=== PATIENT | female | born 1975 | race Hispanic/Latino ===

== ENCOUNTER 2019-08-22 21:54 | Emergency (ER) | payer OTHER ==
[~2019-08-22 21:54] MED LIST: ISOVUE-370 76%-LOCM 1 ML ONE
[2019-08-22] MEDS ORDERED: HYDROcodone/Acetaminophen 5/325 mg Tablet ONE (22:33)
--- NOTE | 2019-08-22 22:58 | RAD ---
XR Lumbar Spine 2 Or 3 View History: Pain Comparison: None. Findings: No acute fracture or malalignment. 5 nonrib-bearing lumbar type vertebra. No listhesis. No pars interarticularis defects. Right upper quadrant surgical clips. SI joints are unremarkable. Impression: Normal examination of the lumbar spine.
[2019-08-22] MEDS ORDERED: Ketorolac Tromethamine 30 MG/ML VIAL ONE (23:59)
[2019-08-23] LABS: #Basophils 0.1 thou/uL (0.0-0.2); #Eosinphils 0.2 thou/uL (0.0-0.7); #Lymphocytes 2.5 thou/uL (1.20-3.40); #Monocytes 0.6 thou/uL (0.11-0.59); #Neutrophils 5.8 thou/uL (1.40-6.50); %Basophils 0.6 % (0.0-1.0); %Eosinophils 2.2 % (0.0-10.0); %Lymphocytes 27.7 % (21.0-51.0); %Monocytes 6.3 % (0.0-10.0); %Neutrophils 63.2 % (42.0-75.0); Hemoglobin 12.3 g/dL (12.0-16.0); Mean Corpuscular Hemoglobin 26.8 pg (27.0-31.0); Mean Corpuscular Volume 81.3 fL (78.0-98.0); Mean Platelet Volume 9.2 fL (7.4-10.4); Platelet Count 198 thou/uL (130-400); RBC Distribution Width 13.7 % (11.5-14.5); Red Blood Cell (RBC) Count 4.59 mill/uL (4.20-5.40); White Blood Cell (WBC) Count 9.1 thou/uL (4.8-10.8)
[2019-08-23 00:21] LABS: ALT (SGPT) 17 U/L (8-55); AST (SGOT) 14 U/L (5-34); Albumin 3.9 g/dL (3.5-5.0); Alkaline Phosphatase 77 U/L (40-110); Anion Gap 13 mmol/L (10-20); BUN (Urea Nitrogen) 12 mg/dL (7.0-18.7); Bilirubin, Total 0.3 mg/dL (0.2-1.2); CRP (Inflammatory) Less than 0.50 mg/dL (= or < 0.5); Calc. Creatinine Clearance 0 mL/min (70-130); Calcium 8.8 mg/dL (7.8-10.44); Carbon Dioxide 20 mmol/L (22-29); Chloride 107 mmol/L (98-107); Estimated GFR-MDRD 88; Globulin 3.1 g/dL (2.4-3.5); Glucose 100 mg/dL (70-105); Lipase 13 U/L (8-78); Sodium 136 mmol/L (136-145)
[2019-08-23 00:24] LABS: BHCG - Serum Negative (NEGATIVE); Pregs Control Background? CLEAR/WHITE (CLR/WHITE); Pregs Control Bar Appear? YES (CONTROL BAR)
[2019-08-23] MEDS ORDERED: Diazepam 5 MG TAB ONE (00:56)
[2019-08-23] MEDS ORDERED: Dexamethasone 4 MG TAB ONE (00:56)
--- NOTE | 2019-08-23 07:55 | CT ---
PRELIMINARY REPORT/[facility]/EMERGENCY AFTER HOURS PROCEDURE PROCEDURE INFORMATION: Exam: CT Abdomen And Pelvis With Contrast Exam date and time: 08/23/2019 12:35 AM Clinical history: 44 years old, female; Prior surgery; Patient HX: Er 20; F44 presents to ED with C/O lower back pain that radiates down her legs, onset several months ago. Reports that the pain comes and goes. Denies blood in urine. Denies n/v/d. Surgical history of cholecystectomy, surgical history of section TECHNIQUE: Imaging protocol: Computed tomography of the abdomen and pelvis with intravenous contrast. COMPARISON: No relevant prior studies available. FINDINGS: Liver: There is diffuse hepatic steatosis. Gallbladder and bile ducts: The patient is status post cholecystectomy. Pancreas: Normal. No ductal dilation. Spleen: Normal. No splenomegaly. Adrenals: Normal. No mass. Kidneys and ureters: Normal. No hydronephrosis. Stomach and bowel: Unremarkable. No obstruction. No mucosal thickening. Appendix: No evidence of appendicitis. Intraperitoneal space: Unremarkable. No free air. No significant fluid collection. Vasculature: Unremarkable. No abdominal aortic aneurysm. Lymph nodes: Unremarkable. No enlarged lymph nodes. Bladder: Unremarkable as visualized. Reproductive: Prominent right ovary follicles are noted. Bones/joints: No acute fracture. There is a central disc protrusion at L5-S1 level with mild spinal canal stenosis. Soft tissues: Unremarkable. IMPRESSION: 1. No acute abdominal pathology identified. 2. Mild spinal canal stenosis at L5-S1. Thank you for allowing us to participate in the care of your patient. Dictated and Authenticated by: Idalmis Barraza MD 08/23/2019 1:07 AM Central Time ([place] & June) FINAL REPORT EMERGENCY AFTER HOURS CT ABDOMEN AND PELVIS WITH IV CONTRAST: HISTORY: Lower back pain with pain radiating to bilateral legs. History of cholecystectomy. IMPRESSION: 1. Fatty infiltration the liver. 2. Post cholecystectomy changes. 3. Approximately 4 cm right adnexal hypodense cystic lesion likely related to an ovarian cyst. Pelvic ultrasound may be helpful for confirmation. 4. Tiny fat-containing umbilical hernia. 5. No acute findings are seen in the abdomen or pelvis. 6. Findings are in agreement with the preliminary report by [facility]. Code QA Transcribed Date/Time: 08/23/2019 8:08 AM
== END 2019-08-23 01:23 | disposition home or self-care (01) ==
LOC: ERS 21:54
DX: M51.16 Intervertebral disc disorders with radiculopathy, lumbar region (principal); E66.9 Obesity, unspecified; N83.201 Unspecified ovarian cyst, right side
CPT/HCPCS: 72100; 74177; 80053; 83690; 84703; 85025; 85652; 86140; 96374; J1885; J8540; Q9966

== ENCOUNTER 2019-09-06 09:29 | Outpatient (CLI) | payer OTHER ==
--- NOTE | 2019-09-06 10:53 | MRI ---
MRI LUMBAR SPINE WITHOUT CONTRAST: INDICATION: History of low back pain with numbness down the right leg. COMPARISON: Lumbar spinal radiograph dated 08/22/2019. FINDINGS: There are 5 lumbar-type vertebrae. The conus is seen to terminate at approximately L1-L2. Visualize d aspects of the retroperitoneum appear within normal limits. At L5-S1, there is a broad-based bulge with a superimposed central disk protrusion. The protrusion c auses mild effacement of the subarachnoid space of the lower thecal sac without definite nerve root i mpingement. No neural foraminal narrowing is evident. A small hemangioma is seen within the left as pect of the L5 vertebra measuring 7 mm. At L4-5, there is a broad-based bulge with mild facet hypertroph, but no central canal or neural fora killian narrowing. At L3-4, there is a mild broad-based bulge and facet hypertrophy, but no central canal or neural fora killian narrowing. At L2-3, there is no appreciable central canal or neural foraminal narrowing. At L1-L2, there is no appreciable central canal or neural foraminal narrowing. IMPRESSION: Mild spondylosis of the lumbar spine with a small central disk protrusion at L5-S1 causing mild effac ement of the ventral thecal sac without definite central canal or neural foraminal narrowing. POS: [facility]
--- NOTE | 2019-09-06 11:15 | RAD ---
LUMBAR SPINE FOUR VIEWS: HISTORY: Lumbar pain. FINDINGS: The lumbar vertebrae maintain normal height and alignment. Disk spaces are normally maintained. Minim al degenerative spurring. Very mild facet hypertrophy. No spondylolisthesis. Alignment appears normal ly maintained with flexion and extension. IMPRESSION: Unremarkable lumbar spine. POS: [facility]
== END 2019-09-06 09:30 | disposition home or self-care (01) ==
LOC: BICMRI 09:29
PROVIDERS: ATTEND Nurse Practitioner Family
DX: M54.5 Low back pain (principal); M51.27 Other intervertebral disc displacement, lumbosacral region; M47.816 Spondylosis without myelopathy or radiculopathy, lumbar region
CPT/HCPCS: 72120; 72148

== ENCOUNTER 2019-10-30 10:08 | Emergency (ER) | payer OTHER ==
[2019-10-30] MEDS ORDERED: Ondansetron ODT 4 MG TAB ONE (12:28)
[2019-10-30] MEDS ORDERED: Morphine 4 MG/ML VIAL ONE (12:28)
[2019-10-30] MEDS ORDERED: Ketorolac Tromethamine 30 MG/ML VIAL ONE (12:28)
== END 2019-10-30 12:51 | disposition home or self-care (01) ==
LOC: ERS 10:08
DX: M54.41 Lumbago with sciatica, right side (principal); E66.9 Obesity, unspecified
CPT/HCPCS: 96372; 96374; J1885; J2270; Q0162

== ENCOUNTER 2020-04-03 10:51 | Outpatient (CLI) | payer OTHER ==
--- NOTE | 2020-04-03 11:33 | ULT ---
ULTRASOUND DOPPLER DUPLEX VENOUS RIGHT LOWER EXTREMITY: DATE: 04/03/2020 HISTORY: 44-year-old female with right lower extremity pain and swelling. Raymundo, the specialty development consultant, states that she informed Casandra of Dr. Vincent's office of the DVT. Raymundo then instructed the patient to go to the ER, as per Dr. Vincent's instructions. TECHNIQUE: Grayscale, color-flow, and spectral analysis, of the right common femoral, profunda femoral, greater saphenous, femoral, popliteal, and posterior tibial, veins. FINDINGS: There is incomplete compressibility of the distal portion of the right femoral vein, which does have blood flow. There is no thrombus in any of the other interrogated veins. IMPRESSION: Positive for nonocclusive partial thrombosis of distal portion of right femoral vein.
== END 2020-04-03 10:52 | disposition home or self-care (01) ==
LOC: BICULT 10:51
PROVIDERS: ATTEND Family Medicine
DX: M79.604 Pain in right leg (principal); M79.89 Other specified soft tissue disorders; I82.411 Acute embolism and thrombosis of right femoral vein

== ENCOUNTER 2020-04-03 11:33 | Emergency (ER) | payer OTHER ==
[2020-04-03 12:36] LABS: #Basophils 0.1 thou/uL (0.0-0.2); #Eosinphils 0.2 thou/uL (0.0-0.7); #Lymphocytes 1.7 thou/uL (1.20-3.40); #Monocytes 0.4 thou/uL (0.11-0.59); #Neutrophils 5.1 thou/uL (1.40-6.50); %Basophils 0.9 % (0.0-1.0); %Eosinophils 2.2 % (0.0-10.0); %Lymphocytes 22.2 % (21.0-51.0); %Neutrophils 68.7 % (42.0-75.0); Hemoglobin 12.2 g/dL (12.0-16.0); Mean Corpuscular HGB CONC 32.3 g/dL (32.0-36.0); Mean Corpuscular Hemoglobin 26.4 pg (27.0-31.0); Mean Corpuscular Volume 81.9 fL (78.0-98.0); Mean Platelet Volume 9.2 fL (7.4-10.4); Platelet Count 218 thou/uL (130-400); RBC Distribution Width 12.8 % (11.5-14.5); Red Blood Cell (RBC) Count 4.61 mill/uL (4.20-5.40); White Blood Cell (WBC) Count 7.4 thou/uL (4.8-10.8)
[2020-04-03 12:55] LABS: ALT (SGPT) 31 U/L (8-55); AST (SGOT) 24 U/L (5-34); Alkaline Phosphatase 84 U/L (40-110); Anion Gap 13 mmol/L (10-20); BUN (Urea Nitrogen) 8 mg/dL (7.0-18.7); Calc. Creatinine Clearance 0 mL/min (70-130); Calcium 8.5 mg/dL (7.8-10.44); Carbon Dioxide 22 mmol/L (22-29); Chloride 107 mmol/L (98-107); Estimated GFR-MDRD Greater than 90; Globulin 2.9 g/dL (2.4-3.5); Glucose 93 mg/dL (70-105); Potassium 3.9 mmol/L (3.5-5.1); Protein, Total 6.9 g/dL (6.0-8.3); Sodium 138 mmol/L (136-145)
--- NOTE | 2020-04-03 12:57 | RAD ---
PORTABLE CHEST 1 VIEW: Date: 04/03/2020 Time: 1159 hours HISTORY: Deep venous thrombosis in the right lower extremity. FINDINGS: Comparison made with exam of 07/18/2015. The heart size is prominent, but stable. The lungs are expanded without lobar consolidation, pneumoth oraces, perry pulmonary edema, or pleural effusions. IMPRESSION: No acute process. POS: [facility]
--- NOTE | 2020-04-04 15:52 | EKG ---
Test Reason : CP Blood Pressure : / mmHG Vent. Rate : 065 BPM Atrial Rate : 065 BPM P-R Int : 138 ms QRS Dur : 088 ms QT Int : 456 ms P-R-T Axes : 010 -01 003 degrees QTc Int : 474 ms Normal sinus rhythm Moderate voltage criteria for LVH, may be normal variant Borderline ECG Confirmed by JIM JETER DO ([id number]), graphics editor GARRETT DIAZ ([id number]) on 04/04/2020 3:51:39 PM Referred By: Confirmed By:JIM JETER DO
== END 2020-04-03 13:30 | disposition home or self-care (01) ==
LOC: ERS 11:33
DX: I82.411 Acute embolism and thrombosis of right femoral vein (principal); I83.93 Asymptomatic varicose veins of bilateral lower extremities
CPT/HCPCS: 36415; 71045; 80053; 84484; 85025; 93005

== ENCOUNTER 2020-04-25 04:55 | Emergency (ER) | payer OTHER ==
[2020-04-25] MEDS ORDERED: Ondansetron PF 4 MG/2 ML Vial ONE (05:14)
[2020-04-25] MEDS ORDERED: Morphine 4 MG/ML VIAL ONE (05:14)
[2020-04-25 05:41] LABS: #Eosinphils 0.2 thou/uL (0.0-0.7); #Lymphocytes 2.5 thou/uL (1.20-3.40); #Monocytes 0.5 thou/uL (0.11-0.59); #Neutrophils 4.9 thou/uL (1.40-6.50); %Basophils 0.5 % (0.0-1.0); %Eosinophils 2.3 % (0.0-10.0); %Lymphocytes 30.6 % (21.0-51.0); %Monocytes 6.6 % (0.0-10.0); %Neutrophils 59.9 % (42.0-75.0); Hemoglobin 12.4 g/dL (12.0-16.0); Mean Corpuscular HGB CONC 32.3 g/dL (32.0-36.0); Mean Corpuscular Volume 80.4 fL (78.0-98.0); Mean Platelet Volume 9.6 fL (7.4-10.4); Platelet Count 235 thou/uL (130-400); RBC Distribution Width 13.3 % (11.5-14.5); Red Blood Cell (RBC) Count 4.76 mill/uL (4.20-5.40); White Blood Cell (WBC) Count 8.2 thou/uL (4.8-10.8)
[2020-04-25 06:01] LABS: ALT (SGPT) 20 U/L (8-55); AST (SGOT) 15 U/L (5-34); Albumin 4.1 g/dL (3.5-5.0); Alkaline Phosphatase 86 U/L (40-110); Anion Gap 13 mmol/L (10-20); BUN (Urea Nitrogen) 13 mg/dL (7.0-18.7); Bilirubin, Total 0.3 mg/dL (0.2-1.2); Calc. Creatinine Clearance 0 mL/min (70-130); Calcium 8.7 mg/dL (7.8-10.44); Carbon Dioxide 22 mmol/L (22-29); Chloride 107 mmol/L (98-107); Estimated GFR-MDRD Greater than 90; Globulin 3.7 g/dL (2.4-3.5); Glucose 98 mg/dL (70-105); Potassium 4.2 mmol/L (3.5-5.1); Protein, Total 7.8 g/dL (6.0-8.3); Sodium 138 mmol/L (136-145)
[2020-04-25] MEDS ORDERED: Ketorolac Tromethamine 30 MG/ML VIAL ONE (06:22)
--- NOTE | 2020-04-25 07:39 | CT ---
CTA OF THE THORAX UTILIZING IV CONTRAST AND PE PROTOCOL AND 3D REFORMATTED IMAGING: INDICATION: Right-sided rib and back pain since yesterday. FINDINGS: No central or segmental pulmonary embolus is demonstrated. Heart and great vessels appear within normal limits. No confluent airspace opacity or pleural effusion is evident. No pneumothorax is demonstrated. No enlarged lymph nodes are evident. There is prominent fatty infiltration of the liver of the visualized upper abdomen. There is mild scattered degenerative and osteoarthritic change. No definite acute osseous abnormalit y is evident. IMPRESSION: 1. No central or segmental pulmonary embolus demonstrated. 2. Fatty liver. POS: [facility]
[2020-04-25] MEDS ORDERED: Iopamidol 370 76% 100 ML VIAL ONE (14:09)
== END 2020-04-25 06:41 | disposition home or self-care (01) ==
LOC: ERS 04:55
DX: R07.81 Pleurodynia (principal); R06.00 Dyspnea, unspecified; M54.9 Dorsalgia, unspecified
CPT/HCPCS: 36415; 71275; 80053; 84484; 85025; 85379; 93005; 96374; 96375; J1885; J2270; J2405; Q9967